=== PATIENT | male | born 1985 | race American Indian/Alaskan Native ===

== ENCOUNTER 2016-07-09 17:25 | Emergency (ER) | payer SELFPAY ==
[2016-07-09] MEDS ORDERED: KEPPRA 1,000 MG/NS 0.75% 100ML 100 ML IV ONE (19:39)
[2016-07-09] MEDS ORDERED: FIORICET PO ONE (19:45)
--- NOTE | 2016-07-09 19:56 | Emergency Department Report ---
HPI - General Chief Complaint: Pain General Time Seen by Provider: 07/09/16 19:37 - HPI HPI: Room 23 The patient is a 31-year-old male presenting with a chief complaint of seizure. The patient reportedly had his first seizure of life in the summer 2015. Patient states he was started on Keppra given referral to neurology was unable to follow up secondary to financial reasons. The patient states today at approximately noon he had another seizure. The patient states that 16:00 he had a second seizure and at approximately 16:015 he had a third seizure. The patient states he gets an aura of "anxiousness" prior to his seizures. Patient complains of a slight headache currently but denies any other complaints. Patient denies any preceding trauma or fevers Location: Central Nervous system Duration: See above Quality: Generalized tonic-clonic Severity: Moderate Modifying factors: [see above] Context: [see above] Mode of transportation: [not driving] ED Past Medical Hx - Past Medical History Previous Medical History?: Yes Hx Seizures: Yes (no meds) - Surgical History Past Surgical History?: No - Family History Family history: no significant - Social History Smoking Status: Never Smoker Substance Use Type: None (denies illicit drug use) - Medications Home Medications: Home Medications Medication Instructions Recorded Confirmed Last Taken Type Azithromycin [Zithromax Z-DOMINICK] 250 mg PO DAILY #1 pack 09/10/15 Unknown Rx Ibuprofen [Motrin] 800 mg PO Q8HR PRN #30 tablet 09/10/15 Unknown Rx Pseudoephedrine [Sudafed] 60 mg PO BID PRN #14 tablet 09/10/15 Unknown Rx guaiFENesin/DEXTROMETHORPHAN 1 each PO BID #20 tab.er.12h 09/10/15 Unknown Rx [Mucinex DM ER 600-30 mg TAB] traMADol [Ultram 50 MG tab] 50 mg PO Q6HR PRN #20 tablet 09/10/15 Unknown Rx levETIRAcetam [Keppra TAB] 500 mg PO BID #90 tablet 07/09/16 Unknown Rx ED Review of Systems ROS: Stated complaint: SEIZURE Other details as noted in HPI Comment: All other systems reviewed and negative Constitutional: denies: chills, fever Eyes: denies: eye pain, eye discharge, vision change ENT: denies: ear pain, throat pain Respiratory: denies: cough, shortness of breath, wheezing Cardiovascular: denies: chest pain, palpitations Endocrine: no symptoms reported Gastrointestinal: denies: abdominal pain, nausea, diarrhea Genitourinary: denies: urgency, dysuria Musculoskeletal: denies: back pain, joint swelling, arthralgia Skin: denies: rash, lesions Neurological: headache, other (seizure) Psychiatric: denies: anxiety, depression Hematological/Lymphatic: denies: easy bleeding, easy bruising Physical Exam - Physical Exam Vital Signs: Vital Signs 07/09/16 07/09/16 07/09/16 17:38 17:42 17:43 Temperature 98.4 F Pulse Rate 112 H 120 H 115 H Respiratory 16 25 H Rate Blood Pressure 145/85 132/89 O2 Sat by Pulse 94 95 Oximetry 07/09/16 07/09/16 17:45 18:00 Temperature Pulse Rate 112 H Respiratory 16 16 Rate Blood Pressure 148/85 O2 Sat by Pulse 94 94 Oximetry Physical Exam: GENERAL: The patient is well-developed well-nourished male lying on stretcher not appearing to be in acute distress. [] HEENT: Normocephalic. Atraumatic. Extraocular motions are intact. Patient has moist mucous membranes. No nystagmus NECK: Supple. No meningitic signs are noted. Trachea midline CHEST/LUNGS: Clear to auscultation. There is no respiratory distress noted. HEART/CARDIOVASCULAR: Regular. There is no tachycardia. There is no gallop rub or murmur. ABDOMEN: Abdomen is soft, nontender. Patient has normal bowel sounds. There is no abdominal distention. SKIN: There is no rash. There is no edema. There is no diaphoresis. NEURO: The patient is awake, alert, and oriented. The patient is cooperative. The patient has no focal neurologic deficits. The patient has normal speech. Cranial nerves II through XII grossly intact, no drift MUSCULOSKELETAL: There is no evidence of acute injury. ED Course Vital Signs 07/09/16 07/09/16 07/09/16 17:38 17:42 17:43 Temperature 98.4 F Pulse Rate 112 H 120 H 115 H Respiratory 16 25 H Rate Blood Pressure 145/85 132/89 O2 Sat by Pulse 94 95 Oximetry 07/09/16 07/09/16 17:45 18:00 Temperature Pulse Rate 112 H Respiratory 16 16 Rate Blood Pressure 148/85 O2 Sat by Pulse 94 94 Oximetry ED Medical Decision Making - Lab Data Result diagrams: 07/09/16 19:54 07/09/16 19:54 Laboratory Tests 07/09/16 07/09/16 19:54 19:54 WBC 6.7 RBC 5.54 H Hgb 14.2 Hct 44.0 MCV 79 L MCH 26 L MCHC 32 RDW 16.4 H Plt Count 323 Lymph % (Auto) 16.7 Ada % (Auto) 6.2 Eos % (Auto) 0.4 Baso % (Auto) 0.4 Lymph # 1.1 L Ada # 0.4 Eos # 0.0 Baso # 0.0 Seg Neutrophils % 76.3 H Seg Neutrophils # 5.1 Sodium 136 L Potassium 4.1 Chloride 97.3 L Carbon Dioxide 26 Anion Gap 17 BUN 9 Creatinine 0.9 Estimated GFR > 60 BUN/Creatinine Ratio 10.00 Glucose 101 H Calcium 9.4 Magnesium 2.4 H - Differential Diagnosis seizure Critical care attestation.: If time is entered above; I have spent that time in minutes in the direct care of this critically ill patient, excluding procedure time. ED Disposition Clinical Impression: Seizure Disposition: DISCHARGED TO HOME OR SELFCARE Is pt being admited?: No Does the pt Need Aspirin: No Condition: Stable Instructions: Epilepsy (ED), Recurrent Seizures Adult (ED) Additional Instructions: You should not drive or operate heavy machinery until you're cleared by a neurologist. Return to the emergency department immediately should you develop worsening symptoms, fever, inability to tolerate food or liquid or any other concerns. Prescriptions: levETIRAcetam [Keppra TAB] 500 mg PO BID #90 tablet Referrals: [facility] [Outside] - 3-5 Days PIYUSH MAI MD [Staff Physician] - [facility] (Dr. Mai is a neurologist. Please follow up with him or any neurologist for further evaluation) Time of Disposition: 21:08
[2016-07-09 20:21] LABS: Basophils % (Auto) 0.4 % (0.0-1.8); Eosinophils % (Auto) 0.4 % (0.0-4.3); Hemoglobin 14.2 gm/dl (11.8-15.2); Mean Corpuscular HGB Conc 32 % (32-34); Mean Corpuscular Volume 79 fl (84-94); Platelet Count 323 K/mm3 (140-440); Red Blood Count 5.54 M/mm3 (3.65-5.03); Red Cell Distribution Width 16.4 % (13.2-15.2); White Blood Count 6.7 K/mm3 (4.5-11.0)
[2016-07-09 20:30] LABS: Mean Corpuscular Hemoglobin 26 pg (28-32)
[2016-07-09 20:50] LABS: Blood Urea Nitrogen 9 mg/dL (9-20); Calcium 9.4 mg/dL (8.4-10.2); Carbon Dioxide 26 mmol/L (22-30); Chloride 97.3 mmol/L (98-107); Glucose 101 mg/dL (75-100); Magnesium 2.4 mg/dL (1.7-2.3); Potassium 4.1 mmol/L (3.6-5.0); Sodium 136 mmol/L (137-145)
[2016-07-09 21:08] LABS: Anion Gap 17 mmol/L
[2016-07-09 21:39] VITALS: BP 113/57
== END 2016-07-09 22:06 | disposition home or self-care (01) ==
LOC: ED 17:25
DX: R56.9 Unspecified convulsions (principal)
CPT/HCPCS: 36415; 80048; 83735; 85025; 96365; 99284; J1953